=== PATIENT | male | born 1990 | race Caucasian/White ===

== ENCOUNTER 2023-05-23 13:43 | Emergency (ER) | payer OTHER ==
[2023-05-23] MEDS: LORazepam 2 MG/ML SDV IVPUSH ONE (13:09)
[2023-05-23 13:35] LABS: MDMA (ECSTASY), URINE POSITIVE; METHAMPHETAMINES,URINE POSITIVE
[2023-05-23 13:36] LABS: AMPHETAMINES,URINE POSITIVE; BARBITURATES,URINE NEGATIVE; BENZODIAZEPINE,URINE NEGATIVE; METHADONE,URINE NEGATIVE; OPIATES,URINE NEGATIVE; OXYCODONE,URINE NEGATIVE; PHENCYCLIDINE,URINE NEGATIVE; TCA,URINE NEGATIVE
[~2023-05-23 13:43] MED LIST: Flumazenil 0.1 MG/ML 5 ML MDV IVPUSH PRN
[2023-05-23 13:49] LABS: A/G RATIO 1.1; ALANINE AMINOTRANSFERASE,ALT 27 U/L (16-63); ALBUMIN 4.1 g/dL (3.4-5.0); ALKALINE PHOSPHATASE 68 U/L (46-116); ANION GAP 26.3 mEq/L (7-13); ASPARTATE AMNIOTRANSFERASE,AST 23 U/L (15-37); BILIRUBIN TOTAL 0.6 mg/dL (0.2-1.0); BLOOD UREA NITROGEN,BUN 17 mg/dL (7-18); BUN/CREATININE RATIO 10.8 (No establ ref range); CALCIUM 9.1 mg/dL (8.5-10.1); CARBON DIOXIDE,CO2 17 mmol/L (21-32); CHLORIDE,CL 101 mmol/L (98-107); CREATININE 1.57 mg/dL (0.70-1.30); GLUCOSE RANDOM 125 mg/dL (70-99); POTASSIUM,K 3.3 mmol/L (3.5-5.1); PROTEIN TOTAL,TP 7.7 g/dL (6.4-8.2); SODIUM,NA 141 mmol/L (136-145)
[2023-05-23 14:13] LABS: ACETAMINOPHEN 0 ug/mL (10-30 (Therapeutic)); ESTIMATED GFR 48 mL/min (>=60); ETHANOL BLOOD MEDICAL < 3 mg/dL (0)
[2023-05-23 14:15] LABS: HEMATOCRIT 47.6 % (40.0-54.0); HEMOGLOBIN 15.7 g/dL (14.0-18.0); RED BLOOD CELL COUNT 5.47 10^6/uL (4.6-6.2); WHITE BLOOD CELL COUNT,WBC 16.1 10^3/uL (5.0-10.0)
[2023-05-23 14:16] LABS: EOSINOPHILS PERCENT AUTO 2.1 % (1.0-3.0); LYMPHOCYTES PERCENT AUTO 36.1 % (20.5-50.1); MEAN CORPUSCULAR HEMOGLOBIN 28.7 pg (27.0-34.0); NEUTROPHILS PERCENT AUTO 49.4 % (42.2-75.2); PLATELET COUNT,PLT 263 10^3/uL (150-450)
[2023-05-23 14:17] LABS: BASOPHILS PERCENT AUTO 0.4 % (0.0-1.0)
[2023-05-23 14:19] LABS: EOSINOPHILS PERCENT MAN 1 % (1-3); LYMPHOCYTES % ATYPICAL MANUAL 9 %; LYMPHOCYTES PERCENT MAN 22 % (20-50); MONOCYTES PERCENT MAN 9 % (2-8); SEG NEUTROPHILS PERCENT MAN 59 % (42-75)
[2023-05-23] MEDS: Lactated Ringers 1,000 ML IV SCH ×2 (18:02→18:06)
[2023-05-24] MEDS: LORazepam 2 MG/ML SDV ONE (09:35)
== END 2023-05-23 18:21 ==
LOC: EDBD → EDSEX → DL.ED 13:43
DX: F15.10 Other stimulant abuse, uncomplicated (principal)
CPT/HCPCS: 36415; 80053; 80143; 80179; 80305-QW; 80307; 85025; 96374; 99283; 99285-25; J2060; J7120